=== PATIENT | female | born 1980 | race Caucasian/White ===

== ENCOUNTER 2017-02-18 21:33 | Emergency (ER) | payer OTHER ==
[~2017-02-18] VITALS: Ht 167.6 cm; Wt 90.2 kg
[~2017-02-18 21:33] MED LIST: CALC400T6 PO; IBUP-1222 PO; OXYC-302 PO; PNV51CAP2 PO
[2017-02-18 21:36] VITALS: BP 117/74
== END 2017-02-18 22:49 | disposition home or self-care (01) ==
LOC: ED 22:45
DX: H10.211 Acute toxic conjunctivitis, right eye (principal); Z77.098 Contact with and (suspected) exposure to other hazardous, chiefly nonmedicinal, chemicals
CPT/HCPCS: 99283

== ENCOUNTER → 2017-03-30 | Outpatient (CLI) | payer OTHER ==
[~2017-03-30] MED LIST changes: +GADOBUTROL 10 MMOL/10 ML VIAL ONE
== END | disposition home or self-care (01) ==
LOC: CFH 09:03
PROVIDERS: ATTEND Specialist
DX: R16.0 Hepatomegaly, not elsewhere classified (principal)
CPT/HCPCS: 74183; A9585

== ENCOUNTER 2018-09-07 14:29 | Inpatient (IN) | payer OTHER ==
[~2018-09-07] VITALS: Ht 167.6 cm; Wt 95.0 kg
[~2018-09-07 14:29] MED LIST changes: -GADOBUTROL 10 MMOL/10 ML VIAL ONE
[2018-09-07] MEDS ORDERED: OXYTOCIN 10 UNITS/ML, 1ML ONE (16:58)
[2018-09-07] MEDS ORDERED: OXYTOCIN 30U/ 0.9% NaCL 500ML 500 ML ONE ×2 (17:00→18:47)
[2018-09-07] MEDS ORDERED: MISOPROSTOL 200 MCG TABLET ONE (17:01)
[2018-09-07] MEDS ORDERED: LIDOCAINE 1%, 20ML ONE (17:01)
[2018-09-07] MEDS ORDERED: OXYTOCIN 30U/ 0.9% NaCL 500ML 500 ML IV ONE (17:16)
[2018-09-07] MEDS ORDERED: LACTATED RINGERS 1,000 ML IV SCH (17:16)
[2018-09-07] MEDS ORDERED: IBUPROFEN 600 MG TABLET ONE (17:23)
[2018-09-07] MEDS ORDERED: NEWBORN KIT ONE (17:23)
[2018-09-07] MEDS: IBUPROFEN 600 MG TABLET PO PRN (17:26)
[2018-09-07 17:30] VITALS: BP 113/68
[2018-09-07] MEDS ORDERED: METHYLERGONOVINE 0.2 MG/ML IM PRN (17:30)
[2018-09-07] MEDS ORDERED: MISOPROSTOL 200 MCG TABLET PR PRN (17:30)
[2018-09-07] MEDS ORDERED: FENTANYL PF 100 MCG/2ML IV PRN (17:30)
[2018-09-07] MEDS ORDERED: DOCUSATE 100 MG CAPSULE PO PRN (17:30)
[2018-09-07] MEDS ORDERED: FENTANYL PF 100 MCG/2ML IVPush PRN (17:30)
[2018-09-07] MEDS ORDERED: ONDANSETRON 2MG/ML, 2ML IV PRN (17:30)
[2018-09-07] MEDS ORDERED: ACETAMINOPHEN 325 MG TABLET PO PRN (17:30)
[2018-09-07 18:16] LABS: BASOPHILS # (AUTO) 0.03 x10^3/uL (0-0.1); BASOPHILS % (AUTO) 0 % (0-1); EOSINOPHILS % (AUTO) 0 % (1-7); LYMPHOCYTES # (AUTO) 1.04 x10^3/uL (1-3.4); LYMPHOCYTES % (AUTO) 8 % (22-44); MD NO; MEAN CORPUSCULAR HEMOGLOBIN 29.8 pg (27.0-34.8); MEAN CORPUSCULAR HGB CONC 33.3 g/dL (32.4-35.8); MEAN CORPUSCULAR VOLUME 89.7 fL (80-100); MEAN PLATELET VOLUME 7.7 fL (7.4-10.4); MONOCYTES # (AUTO) 0.29 x10^3/uL (0.2-0.8); MONOCYTES % (AUTO) 2 % (2-9); NEUTROPHILS # (AUTO) 11.97 x10^3/uL (1.8-6.8); NEUTROPHILS % (AUTO) 90 % (42-75); PLATELET COUNT 274 x10^3/uL (130-400); RED BLOOD COUNT 4.14 x10^6/uL (3.82-5.3); RED CELL DISTRIBUTION WIDTH 14.9 % (9.6-15.2)
[2018-09-07] MEDS: OXYTOCIN 30U/ 0.9% NaCL 500ML 500 ML IV SCH (18:48)
[2018-09-07 20:00] VITALS: BP 116/74
[2018-09-08 00:15] VITALS: BP 106/68
[2018-09-08] MEDS: IBUPROFEN 600 MG TABLET PO PRN ×2 (00:16→06:32)
[2018-09-08 01:36] LABS: BASOPHILS # (AUTO) 0.04 x10^3/uL (0-0.1); BASOPHILS % (AUTO) 0 % (0-1); EOSINOPHILS % (AUTO) 0 % (1-7); LYMPHOCYTES # (AUTO) 1.83 x10^3/uL (1-3.4); LYMPHOCYTES % (AUTO) 14 % (22-44); MD NO; MEAN CORPUSCULAR HEMOGLOBIN 29.4 pg (27.0-34.8); MEAN CORPUSCULAR HGB CONC 33.2 g/dL (32.4-35.8); MEAN CORPUSCULAR VOLUME 88.8 fL (80-100); MEAN PLATELET VOLUME 8.1 fL (7.4-10.4); MONOCYTES # (AUTO) 0.49 x10^3/uL (0.2-0.8); MONOCYTES % (AUTO) 4 % (2-9); NEUTROPHILS # (AUTO) 11.11 x10^3/uL (1.8-6.8); NEUTROPHILS % (AUTO) 83 % (42-75); PLATELET COUNT 268 x10^3/uL (130-400); RED BLOOD COUNT 3.96 x10^6/uL (3.82-5.3)
[2018-09-08] MEDS: OXYTOCIN 30U/ 0.9% NaCL 500ML 500 ML IV SCH (03:20)
[2018-09-08 04:45] VITALS: BP 110/72
[2018-09-08 07:40] VITALS: BP 109/76
[2018-09-08] MEDS ORDERED: IBUP-1222 PO (08:36)
[2018-09-08] MEDS ORDERED: PRENATAL VIT/IRON/FA 1 EACH TABLET PO SCH (09:00)
[2018-09-08 12:25] VITALS: BP 125/72
== END 2018-09-08 16:42 | disposition home or self-care (01) | DRG 807 ==
LOC: LDOP 14:29 → LDIP 17:03 → 2NW 19:45
PROVIDERS: ADMIT Obstetrics & Gynecology; ATTEND Obstetrics & Gynecology
PROC: 10E0XZZ Delivery of Products of Conception, External Approach (ICD-10-PCS; principal; 2018-09-07)
DX: O62.3 Precipitate labor (principal); Z37.0 Single live birth; Z3A.39 39 weeks gestation of pregnancy; Z90.49 Acquired absence of other specified parts of digestive tract
CPT/HCPCS: 36415; 85025; G0378; J2590